=== PATIENT | female | born 1950 | race Caucasian/White ===

== ENCOUNTER 2022-06-21 14:32 | Outpatient (CLI) | payer OTHER, SELFPAY ==
[2022-06-21 15:07] LABS: Hematocrit 41.4 % (33.0-51.0); Hemoglobin* 13.3 gm/dL (12.0-16.0); Mean Corpuscular HGB Conc 32 gm/dL (32-36); Mean Corpuscular Hemoglobin 29 pg (26-34); Mean Corpuscular Volume 89 fL (80-100); Platelet Count* 380 K/uL (140-440); Red Blood Count 4.66 m/uL (4.00-5.20); White Blood Count* 10.09 K/uL (4.50-11.00)
[2022-06-21 15:09] LABS: Slide Review Reflex No
[2022-06-21 15:12] LABS: Hemoglobin A1C* 6.4 % (0-5.6)
[2022-06-21 21:46] LABS: Alanine Aminotransferase* 20 U/L (4-35); Albumin* 4.3 g/dL (3.3-5.0); Alkaline Phosphatase* 59 U/L (40-150); Aspartate Amino Transferase* 31 U/L (12-35); Bilirubin Total* 0.7 mg/dL (0.1-1.5); Blood Urea Nitrogen* 17 mg/dL (7-30); Calcium* 9.8 mg/dL (8.4-10.6); Carbon Dioxide* 26 mmol/L (20-32); Chloride* 102 mmol/L (96-114); Creatinine* 0.6 mg/dL (0.5-1.5); Estimated Glomerular Filt Rate 95 ml/min; Glucose* 104 mg/dL (60-115); Potassium* 4.3 mmol/L (3.6-5.1); Sodium* 138 mmol/L (135-149); Total Protein* 7.6 g/dL (6.0-8.3)
== END 2022-06-21 14:33 | disposition home or self-care (01) ==
LOC: FRMREF 14:36
PROVIDERS: PCP Family Medicine; Visit Provider Family Medicine
DX: I10 Essential (primary) hypertension (principal); M16.11 Unilateral primary osteoarthritis, right hip; E78.1 Pure hyperglyceridemia; Z01.818 Encounter for other preprocedural examination
CPT/HCPCS: 80053; 83036; 85027

== ENCOUNTER 2022-07-02 13:56 | Outpatient (CLI) | payer OTHER, SELFPAY | END 2022-07-02 13:57 | disposition home or self-care (01) | PROVIDERS: PCP Family Medicine; Visit Provider Orthopaedic Surgery Sports Medicine | DX: Z13.9 Encounter for screening, unspecified (principal) | CPT/HCPCS: 36415; 86850; 86900; 86901 ==

== ENCOUNTER 2022-07-04 10:26 | Day surgery (SDC) | payer OTHER, SELFPAY ==
[2022-07-04] VITALS (23 sets, daily range): BP systolic 86–123; BP diastolic 46–73; PULSE 59–73; RESP 12–20; TEMP 35.4–36.7; O2SAT 90–99; BMI 39.3
[2022-07-04] MEDS: ACETAMINOPHEN 500 MG TABLET 1000 MG PO ×2 (10:58→18:36)
[2022-07-04] MEDS: OXYCODONE (CR) 10 MG TAB.ER.12H PO (10:58)
[2022-07-04] MEDS: CELECOXIB 200 MG CAPSULE PO ×2 (10:58→23:46)
[2022-07-04] MEDS: SODIUM CHLORIDE 0.9 % (FLUSH) 10 ML SYRINGE IVF (11:20)
[2022-07-04] MEDS: LACTATED RINGERS 1000 ML 1,000 ML 100 ML IV ×3 (11:20→15:55)
[2022-07-04] MEDS: MIDAZOLAM HCL 1 MG/ML inj IVP (12:53)
[2022-07-04] MEDS: fentaNYL 100 MCG/2 ML inj IVP (12:53)
--- NOTE | 2022-07-04 12:56 | SUR.PREOP ---
TIME?OUT:?1252 PT/RN/MDA?VERIFICATION?OF?SURGICAL?SITE,?PROCEDURE,?AND?CONSENT OBTAINED?PRIOR?TO?INVASIVE?PROCEDURE.
[2022-07-04] MEDS: CEFAZOLIN 2 GM in 0.9 % SODIUM CHLORIDE Mini-bag 100 ML IVPB ×2 (13:26→19:40)
--- NOTE | 2022-07-04 13:40 | CRLHL7_ITS ---
For Patients: As a result of the Cures Act, medical imaging exams and procedure reports are released immediately into your electronic medical record. You may view this report before your referring provider. If you have questions, please contact your health care provider. Indication: POST OP RIGHT ROSELYN Technique: AP hip center pelvis and lateral view right hip Findings/Impression: Hardware from a right total hip arthroplasty is in satisfactory position. Bone alignment is normal. No sign of acute fracture. Postop changes are within normal limits. Dictated by Marco Antonio Robertson MD @ 07/05/2022 9:13:16 AM (Electronically Signed)
--- NOTE | 2022-07-04 13:46 | P.NB_ITS ---
Nerve Block Nerve Block Time Seen by Provider: 12:30 Date Seen: 07/04/22 Type of block requested by surgeon for post-operative analgesia: MARY/LFCN Side: right Time out performed: Yes Verification of patient name: Yes Verification of date of : Yes Site marking: site marked Name of person performing procedure: Eliseo Continuous monitoring Was continuous monitoring of O2 sat, B/P, quality assurance monitor, recorded every 15 minutes?: Yes Procedure Checklist: sterile prep, needles and gloves Ultrasound guided. Images saved: Yes Medications given in 5ml increments after negative aspiration: Ropivicaine %: 0.5 mL: 30 Needle gauge: 20 Decadron (mg): 10 Precedex (mcg): 25 Patient tolerated procedure well: Yes Additional comments: Needle noted adjacent to nerve Block Charges Block Charge (with Pro Fee): Other Periph Nerve Block Use of Ultrasound Machine for Block: Yes- US Guidance/pain block
--- NOTE | 2022-07-04 15:21 | CRLHL7_ITS ---
For Patients: As a result of the Cures Act, medical imaging exams and procedure reports are released immediately into your electronic medical record. You may view this report before your referring provider. If you have questions, please contact your health care provider. Indication: Hip replacement surgery Technique: AP hip fluoroscopic image. Fluoroscopy time 48.2 seconds. Findings/Impression: Hardware from a right total hip arthroplasty is in satisfactory position. Dictated by Marco Antonio Robertson MD @ 07/05/2022 9:12:31 AM (Electronically Signed)
--- NOTE | 2022-07-04 15:27 | P.ORPRC_ITS ---
Procedure Note Date of procedure: 07/04/22 Procedure: PREOPERATIVE DIAGNOSIS: 1. Right hip osteoarthritis, severe, primary POSTOPERATIVE DIAGNOSIS: 1. Right hip osteoarthritis, severe, primary PROCEDURE: 1. Right total hip arthroplasty-anterior approach 2. 74211 - intraoperative fluoroscopy up to 1 hour. SURGEON: Toni Cano MD. LOAN REVIEW MANAGER: Abhay Ochoa PA-C; RENUKA Meza - Of note, a skilled learning and development assistant was critical for this case to aid in patient positioning, tissue retraction, limb manipulation/positioning, and closure. ANESTHESIA: General endotracheal anesthetic EBL: 300 mL IMPLANTS: DePuy J&J uncemented total hip Gunlock cup size 50, hole eliminator, +0 neutral liner Actis stem, standard offset, size 9 +1 mm ceramic 32mm head COMPLICATIONS: None evident INDICATIONS: The patient is a pleasant 72-year-old female who has experienced severe right hip pain and difficulty bearing weight. Workup included x-rays which revealed severe osteoarthrosis in the hip. Given the deformity, the dysfunction, and the pain, as well as the failure of nonoperative management, re commendation was made for surgery. While radiographically she appeared relatively neutral on alignment/leg length, she felt short on the operative side open sees right lower extremity). FINDINGS: Severe osteoarthrosis right hip with extensive chondral wear throughout the femoral head and acetabulum. Perimeter osteophytes. DESCRIPTION OF PROCEDURE: Following a thorough discussion of risks, benefits, and alternatives consent was obtained and the right hip was marked. The patient was brought to the operating room and placed supine on the operating table. Induction of anesthesia was undertaken. 2 g IV Ancef and 1 g tranexamic acid was administered within 1 hr of incision preoperatively. Proper time-out was performed identifying proper patient, site, procedure. The operative extremity was prepped and draped in the appropriate sterile fashion using ChloraPrep after the patient was positioned on the [place] table with head in neutral alignment and all bony prominences well padded. C-arm fluoroscopic imaging was utilized to confirm proper pelvis rotation and position, and to get true AP films of both the contralateral left, and the affected right hip. This is for comparison. A longitudinal incision was made starting approximately 1 cm distal to the ASIS, and 3-4 cm lateral. The incision was extended distally aiming toward the lateral border the patella. Sharp incision through skin and bovie cautery through the subcutaneous tissue allowed identification of the TFL fascia. This was sharply divided, and the fascia bluntly released from the muscle fibers as we dissected medial. Upon coming to the medial border, we were able to retract the TFL laterally, and penetrated the deeper fascia and identify the crossing circumflex vessels. These were ligated/cauterized. The rectus was elevated from the capsule, and retractors placed laterally and medially along the femoral neck to help with visualization of the capsule. We then performed an inverted T capsulotomy. The capsule was tagged for later repair. Retractors were placed inside the capsule. The femoral neck was visualized after releasing medially down to the lesser trochanter, along the saddle laterally, and up onto the acetabulum. The femoral neck cut was made in line with our preoperative templating. The head was removed in a single piece, and sized. We turned our attention to acetabular preparation. Initially, the labrum was resected from around the perimeter, the pulvinar was excised, allowing us to visualize the false wall. We started the reaming with a 43 mm reamer. This was medialized down to the true wall. We then enlarged our reamers sequentially up to one size less than the selected cup size. We trialed at the same size and found it to have an excellent fit. The selected cup was then opened, inserted, and impacted in line with the goal of 40? of abduction, and 20-25? of anteversion. This was confirmed on C-arm fluoroscopic imaging to be in the appropriate/goal position. Once the cup was placed we placed a hole eliminator and a liner consistent with preop planning. Attention was turned to the femoral preparation. The limb was extended, externally rotated, and adducted. The posteromedial capsule was released, as retractors were placed allowing excellent access to the proximal femur. Initially a box bender was followed by canal finder followed by various broaches. We broached sequentially up to the size noted above, found it to have excellent rotational control, and trialing various heads and necks, revealed that appropriate neck offset, and the above noted head size provided the greatest stability, and pentecostal of length, and offset. C-arm fluoroscopic imaging confirmed position of the stem, as well as leg lengths, which were compared with the pre procedure all fluoroscopic images. Trial implants were removed, the real femoral stem inserted, as was the appropriate head. After reducing, the leg was placed through range of motion and stability was confirmed anterior, posterior, and lateral. A 3 min Betadine soak was then performed, and thorough irrigation with normal saline followed. Closure of the capsule was performed with #1 PDS. Bleeding was confirmed to be controlled at this stage, and the TFL fascia was closed with #0 strata fix. Subcutaneous, and subcuticular closure was performed with 2-0 Vicryl and 4-0 Monocryl, respectively. Dressings were applied, and the patient was awoken from anesthesia and transferred the PACU in stable condition. A skilled learning and development assistant was critical for this case to aid in patient positioning, tissue retraction, acetabular and proximal femoral exposure, limb manipulation/positioning, dislocation/relocation, patient safety, and closure. PLAN: 1. Weight bear as tolerated operative extremity. 2. 23 hr perioperative antibiotics. 3. Ice. 4. PT/OT consults for ambulation assistance/mobility education. 5. Social work consult for discharge planning. 6. DVT prophylaxis with at SCDs, [place] Rod, and Xarelto x5 days followed by aspirin for a total of 1 month..
--- NOTE | 2022-07-04 16:39 | W.ANESCHARGE ---
Anesthesia Charges Start Date/Time Anesthesia Start Date: 07/04/22 Anesthesia Start Time: 13:18 Stop Date/Time Anesthesia Stop Date: 07/04/22 Anesthesia Stop Time: 16:32 Summary Emergency: No Extremes of Age: Over 70-CPT [id number]
--- NOTE | 2022-07-04 17:13 | SUR.PHASEI ---
patient met discharge criteria per anesthesia
[2022-07-04] MEDS: HYDROmorphone 0.5 mg/0.5 ml inj IVP (17:32)
[2022-07-04] MEDS: ONDANSETRON 2 MG/ML inj 4 MG IVP (17:32)
[2022-07-04] MEDS: 0.9 % SODIUM CHLORIDE 500 ML IV (18:11)
--- NOTE | 2022-07-04 18:13 | P.IMCN_ITS ---
Date of Consult Consult date: 07/04/22 Requesting Physician: Orthopedics Primary Care Provider: April Colón, Consult Narrative Reason for consult: Medical Mangement following Right Total Hip Arthoplasty Narrative: Marissa Quijano is a 72 year old female who underwent a successful right total hip arthroplasty earlier today. She is mildly hypotensive currently and is receiving a saline bolus. Pt has no other complaints and otherwise feels well. There are no reports of any difficulty during her procedure or recovery to this point. Review of Systems Status of ROS: Reports: 10 or more systems reviewed and unremarkable except as noted in History and below [facility] Medical History (Updated 07/04/22 @ 18:25 by Johnathan Cassidy MD) Heart murmur Hemoglobin A1c above reference range Hip pain, right Hyperlipidemia Hypertension Spinal stenosis Surgical History (Updated 07/04/22 @ 18:19 by Johnathan Cassidy MD) History of appendectomy (~1966) History of cataract removal with insertion of prosthetic lens History of hysterectomy (~1966) History of partial surgical removal of colon History of right hip replacement History of total left hip replacement (08/28/18) Family History Father High blood pressure S/P triple vessel bypass Paget's disease Mother High blood pressure CHF (congestive heart failure) Dementia Brother Diabetes Cancer of kidney Stroke Heart attack Other Heart disease Social History Narrative: Non-smoker Highest level of school completed/degree received: high school graduate Smoking Status: Former smoker What tobacco products do you use: cigarettes Smoking quit date/years: >15 years ago Do you use any of these nicotine containing products: None Second hand tobacco smoke exposure: No How often do you have a drink containing alcohol: monthly or less Alcohol type: wine How many standard drinks containing alcohol do you have on a typical day: 1 or 2 How often do you have six or more drinks on one occasion: Never AUDIT-C Alcohol total score: 1 Non-prescribed substance use: marijuana (any form) Non-prescribed substance use details: medical marijuana but not in past month Caffeine: Yes (decaf coffee 1-2 cups per day/ 1 glass iced tea per day) Are you using contraception or practicing any form of control: No service: No Meds Home Medications and Allergies Home Medications Medication Instructions Recorded Confirmed Type acetaminophen 650 mg 650 mg PO TID PRN 05/01/22 07/04/22 History tablet,extended release cholecalciferol (vitamin D3) 25 25 mcg PO DAILY 05/01/22 07/04/22 History mcg (1,000 unit) capsule coenzyme Q10 100 mg capsule 100 mg PO DAILY 05/01/22 07/04/22 History krill oil 500 mg capsule 1 cap PO DAILY 05/01/22 07/04/22 History lisinopril 10 mg tablet 10 mg PO DAILY 05/01/22 07/04/22 History multivitamin 1 tab PO DAILY 05/01/22 07/04/22 History zinc 50 mg tablet 50 mg PO DAILY 05/01/22 07/04/22 History atorvastatin 10 mg tablet 10 mg PO HS 07/03/22 07/04/22 History Allergies Allergy/AdvReac Type Severity Reaction Status Date / Time No Known Allergies Allergy Verified 07/04/22 10:47 Exam Narrative: Exam Narrative: EXAM GENERAL: Patient appears comfortable and well. EYES: No scleral icterus. THYROID: no thyroid nodules or thyromegaly. LYMPH: No supraclavicular or cervical lymphadenopathy. SKIN: Visible skin seen during exam normal or with benign process only. EXT: No dependent lower extremity pedal edema. Right hip is sterilely dressed. HEART: 2 or 6 systolic murmur which patient states is chronic. LUNGS: Clear to auscultation bilaterally with no crackles or wheezes. ABD: Soft, non tender, non distended. PSYCH: Good eye contact, speech is not pressured. Const: Vital Signs, click to edit/add: Vital Signs - 24 hr 07/04/22 10:51 07/04/22 12:53 07/04/22 13:05 Temperature 98.1 F Pulse Rate 71 67 69 Pulse Rate [Left P ulse Oximeter] Respiratory Rate 16 16 16 Blood Pressure 123/73 115/59 L 102/51 L Blood Pressure [Ri ght Arm] Pulse Oximetry 94 99 98 Oxygen Delivery Me thod Room Air Nasal Cannula Nasal Cannula Oxygen Flow Rate 2 2 07/04/22 13:01 07/04/22 16:28 07/04/22 16:35 Temperature 96.8 F L 96.8 F L Pulse Rate 62 63 63 Pulse Rate [Left P ulse Oximeter] Respiratory Rate 16 15 15 Blood Pressure 107/52 L 104/51 L 104/51 L Blood Pressure [Ri ght Arm] Pulse Oximetry 98 95 95 Oxygen Delivery Me thod Nasal Cannula Nasal Cannula Room Air Oxygen Flow Rate 2 4 0 07/04/22 16:40 07/04/22 16:45 07/04/22 16:50 Temperature 96.8 F L 96.8 F L 96.8 F L Pulse Rate 64 68 64 Pulse Rate [Left P ulse Oximeter] Respiratory Rate 12 19 17 Blood Pressure 102/53 L 109/53 L 111/64 Blood Pressure [Ri ght Arm] Pulse Oximetry 98 98 90 Oxygen Delivery Me thod Room Air Room Air Room Air Oxygen Flow Rate 0 0 0 07/04/22 16:55 07/04/22 17:00 07/04/22 17:05 Temperature 96.6 F L 96.6 F L 95.7 F L Pulse Rate 66 66 63 Pulse Rate [Left P ulse Oximeter] Respiratory Rate 15 15 14 Blood Pressure 99/57 L 99/57 L Blood Pressure [Ri ght Arm] 101/57 L Pulse Oximetry 93 93 Oxygen Delivery Me thod Room Air Room Air Room Air Oxygen Flow Rate 0 0 0 07/04/22 17:15 Temperature 95.7 F L Pulse Rate Pulse Rate [Left P ulse Oximeter] 64 Respiratory Rate 16 Blood Pressure Blood Pressure [Ri ght Arm] 91/60 Pulse Oximetry 94 Oxygen Delivery Me thod Nasal Cannula Oxygen Flow Rate 1 Assessment and Plan Assessment and plan (1) History of right hip replacement: Status: Acute Assessment and Plan: Pt receiving saline bolus. Will monitor closely as evening progresses. Anti- hypertensive on hold. Preoperative Hgb 13.3. Will plan to follow standard post operative course with PT and OT assessment. (2) Hypertension: Status: Chronic Assessment and Plan: Holding Lisinopril (3) Hyperlipidemia: Status: Chronic Assessment and Plan: Continue Atorvastatin (4) Heart murmur: Status: Chronic Assessment and Plan: Pt is aware of this. She is not in heart failure. Pt does have an Echo from 2017 showing LVH with EF of 55-60% with a mildly dilated Left Atrium. Would recommend outpt follow up. (5) Hemoglobin A1c above reference range: Status: Chronic Assessment and Plan: Glucose is 104. Will need outpt follow up. Plan Pt would like to be a full code.
--- NOTE | 2022-07-04 19:31 | PC.NURSE ---
Pt up to m/s floor at 1705, requested to sit up right away in bed, BP's soft - see frequents. Dr. Cassidy notified. NS bolus initiated and pt layed flat. pain upon arrival 04/22 - dilaudid given for this. mild nausea - zofran. Dtr in room and supportive. ice pack to right hip and surgical [place]ist[place] CDI. LS CTA.
[2022-07-04] MEDS: SENNOSIDES 1 TAB TABLET 2 TAB PO (23:46)
[2022-07-04] MEDS: ATORVASTATIN 10 MG TABLET PO (23:46)
[2022-07-05] MEDS: OXYCODONE 5 MG TABLET PO ×5 (02:27→13:40)
[2022-07-05 03:00] VITALS: BP 114/55; PULSE 64; RESP 16; TEMP 36.6; O2SAT 95
[2022-07-05] MEDS: CEFAZOLIN 2 GM in 0.9 % SODIUM CHLORIDE Mini-bag 100 ML IVPB ×2 (03:31→11:22)
--- NOTE | 2022-07-05 05:15 | PC.NURSE ---
[id number]: patient up with assist X1 to BR with walker and gait belt, pain well managed, incision c/d/i with Mepilex dressing, active ice to site entire shift. tolerating diet. IS to 1999
[2022-07-05] MEDS: ACETAMINOPHEN 500 MG TABLET 1000 MG PO ×2 (06:34→12:22)
[2022-07-05 06:56] LABS: Basophils Percent Auto 0.1 % (0.0-3.0); Hematocrit 33.3 % (33.0-51.0); Hemoglobin* 10.9 gm/dL (12.0-16.0); Immature Granulocytes Abs Auto 0.02 K/uL (0.00-0.30); Lymphocytes Percent Auto 6.3 % (20-44); Mean Corpuscular HGB Conc 33 gm/dL (32-36); Mean Corpuscular Hemoglobin 29 pg (26-34); Mean Corpuscular Volume 88 fL (80-100); Monocytes Percent Auto 7.6 % (0.0-11.0); Neutrophils Percent Auto 85.9 % (42.0-72.0); Platelet Count* 328 K/uL (140-440); RDW Coefficient of Variation % 13.2 % (11.5-15.5); Red Blood Count 3.79 m/uL (4.00-5.20); White Blood Count* 14.55 K/uL (4.50-11.00)
[2022-07-05 06:58] LABS: Slide Review Reflex No
[2022-07-05 07:00] VITALS: BP 109/60; PULSE 95; RESP 16; TEMP 36.8; O2SAT 95
[2022-07-05 07:05] LABS: Sodium* 134 mmol/L (135-149)
[2022-07-05 07:08] LABS: Blood Urea Nitrogen* 14 mg/dL (7-30); Creatinine* 0.6 mg/dL (0.5-1.5); Estimated Glomerular Filt Rate 95 ml/min
[2022-07-05] MEDS: CELECOXIB 200 MG CAPSULE PO (08:35)
--- NOTE | 2022-07-05 09:54 | PM.DS1 ---
DS: Providers Provider Time Seen by Provider: 07:40 Date Seen: 07/05/22 Primary care physician: April Colón DO Consults: 07/04/22 17:07 Consult to Occupational Therapy [CONS] Routine Comment: Reason(s) for OT Consult:: ADLs Prior to Discharge Any Restrictions?:: No Restrictions Comment: Consult to Physical Therapy [CONS] Routine Comment: Ambulate in the rahman today Reason(s) for PT Consult:: Evaluate and Treat Any Restrictions?:: No Restrictions Comment: Nursing Activity Consult to Physician [CONS] Routine Comment: Consulting Provider: Hospitalists Has provider been notified: No Consult to Anthropological Linguist [CONS] Routine Comment: Reason for Consult:: Discharge Planning Needs Attending Physician on discharge: Toni Cano MD Date of Discharge: 07/05/22 DS: Diagnosis Discharge Diagnosis (1) Heart murmur: Status: Chronic (2) History of right hip replacement: Status: Acute Problem details: POD 1 right total hip arthroplasty - anterior approach (3) Osteoarthritis of right hip: Status: Acute Problem details: Right hip osteoarthrosis, severe - [id number] status post RTHA-anterior approach (4) Elevated hemoglobin A1c: Status: Acute (5) Hyperlipidemia: Status: Chronic (6) Hypertension: Status: Chronic (7) Hypertriglyceridemia: Status: Acute (8) Low back pain: Status: Acute (9) Osteoporosis: Status: Acute (10) Postoperative anemia due to acute blood loss: Status: Acute Problem details: Preop hemoglobin 13, postop hemoglobin 10.9; repeat 6 hours later 11.0 DS: Summary Hospital Course Hospital Course: 72-year-old female who underwent a successful elective right total hip arthroplasty. Postoperatively she was noted to be mildly hypotensive and received a saline bolus. Her blood pressures continued to be low normal overnight. Preop hemoglobin was 13 and postop hemoglobin is 10.9. Xarelto was due to be started on postop day 1. In the morning for VTE prophylaxis after hip arthroplasty, but this was held until later in the day to determine if hemoglobin remains stable and blood pressures improved. Also her usual antihypertensives were held on the 1st postop day. She is noted have a heart murmur which is known, last echocardiogram was in 2017. Recommend repeat outpatient echocardiogram. The patient has a history of right hip osteoarthritis, primary, severe. After appropriate preoperative evaluation, the patient underwent right total hip arthroplasty. Postoperatively given anticoagulation for deep vein thrombosis prophylaxis, which was held until confirmed stabilization of her hemoglobin which dropped from 13.3 preop to 10.9 postop. Repeat hemoglobin 6 hours later showed to be stable at 11; thus patient was discharged with Xarelto. Once completion of Xarelto, she will transition to aspirin b.i.d. They progressed to PT/OT and were felt ready and prepared for discharged to home with appropriate pain medication and anticoagulation medications. Time Spent with Patient Time attestation: Total time spent providing and/or coordinating discharge services: Exam Narrative: Exam Narrative: General: No acute distress. Awake, alert, oriented x3. No pallor. No jaundice. Right eye tic noted. Cardiovascular: Regular rate and rhythm. No murmurs, gallops, or rubs. Respiratory: Clear to auscultation bilaterally. No wheezes or crackles. Abdomen: Bowel sounds present. Soft, nondistended, nontender. Extremities: Right anterior hip bandage clean, dry, and intact. The area of wound and surrounding is soft to palpation without much tenderness. No pedal edema. Const: Vital Signs, click to edit/add: Vital Signs - 24 hr 07/04/22 10:51 07/04/22 12:53 07/04/22 13:05 Temperature 98.1 F Pulse Rate 71 67 69 Pulse Rate [Left P ulse Oximeter] Respiratory Rate 16 16 16 Blood Pressure 123/73 115/59 L 102/51 L Blood Pressure [Ri ght Arm] Pulse Oximetry 94 99 98 Oxygen Delivery Me thod Room Air Nasal Cannula Nasal Cannula Oxygen Flow Rate 2 2 07/04/22 13:01 07/04/22 16:28 07/04/22 16:35 Temperature 96.8 F L 96.8 F L Pulse Rate 62 63 63 Pulse Rate [Left P ulse Oximeter] Respiratory Rate 16 15 15 Blood Pressure 107/52 L 104/51 L 104/51 L Blood Pressure [Ri ght Arm] Pulse Oximetry 98 95 95 Oxygen Delivery Me thod Nasal Cannula Nasal Cannula Room Air Oxygen Flow Rate 2 4 0 07/04/22 16:40 07/04/22 16:45 07/04/22 16:50 Temperature 96.8 F L 96.8 F L 96.8 F L Pulse Rate 64 68 64 Pulse Rate [Left P ulse Oximeter] Respiratory Rate 12 19 17 Blood Pressure 102/53 L 109/53 L 111/64 Blood Pressure [Ri ght Arm] Pulse Oximetry 98 98 90 Oxygen Delivery Me thod Room Air Room Air Room Air Oxygen Flow Rate 0 0 0 07/04/22 16:55 07/04/22 17:00 07/04/22 17:05 Temperature 96.6 F L 96.6 F L 95.7 F L Pulse Rate 66 66 63 Pulse Rate [Left P ulse Oximeter] Respiratory Rate 15 15 14 Blood Pressure 99/57 L 99/57 L Blood Pressure [Ri ght Arm] 101/57 L Pulse Oximetry 93 93 Oxygen Delivery Me thod Room Air Room Air Room Air Oxygen Flow Rate 0 0 0 07/04/22 17:15 07/04/22 17:30 07/04/22 17:45 Temperature 95.7 F L 97.1 F L 97.1 F L Pulse Rate Pulse Rate [Left P ulse Oximeter] 64 59 L 60 Respiratory Rate 16 16 14 Blood Pressure Blood Pressure [Ri ght Arm] 91/60 103/50 L 91/46 L Pulse Oximetry 94 95 95 Oxygen Delivery Me thod Nasal Cannula Nasal Cannula Nasal Cannula Oxygen Flow Rate 1 1 1 07/04/22 18:27 07/04/22 18:00 07/04/22 18:10 Temperature 97.2 F L 97.1 F L 97.1 F L Pulse Rate Pulse Rate [Left P ulse Oximeter] 65 63 68 Respiratory Rate 16 16 16 Blood Pressure Blood Pressure [Ri ght Arm] 99/52 L 86/47 L 94/48 L Pulse Oximetry 95 96 95 Oxygen Delivery Me thod Nasal Cannula Nasal Cannula Nasal Cannula Oxygen Flow Rate 1 2 1 07/04/22 19:00 07/04/22 20:00 07/04/22 21:00 Temperature 97.6 F 97.6 F 98 F Pulse Rate Pulse Rate [Left P ulse Oximeter] 66 69 73 Respiratory Rate 16 18 20 Blood Pressure Blood Pressure [Ri ght Arm] 102/61 109/60 120/53 L Pulse Oximetry 98 93 Oxygen Delivery Me thod Nasal Cannula Room Air Room Air Oxygen Flow Rate 1 07/04/22 22:00 07/04/22 22:00 07/04/22 23:00 Temperature 98 F 98 F Pulse Rate Pulse Rate [Left P ulse Oximeter] 68 67 Respiratory Rate 20 16 Blood Pressure Blood Pressure [Ri ght Arm] 110/62 92/54 L Pulse Oximetry 93 93 95 Oxygen Delivery Me thod Nasal Cannula Nasal Cannula Nasal Cannula Oxygen Flow Rate 1 1 1 07/04/22 23:00 07/05/22 03:00 07/05/22 07:00 Temperature 98 F 98 F 98.3 F Pulse Rate Pulse Rate [Left P ulse Oximeter] 67 64 95 Respiratory Rate 16 16 16 Blood Pressure Blood Pressure [Ri ght Arm] 93/51 L 114/55 L 109/60 Pulse Oximetry 95 95 95 Oxygen Delivery Me thod Nasal Cannula Nasal Cannula Nasal Cannula Oxygen Flow Rate 1 0 0 DS: Data Data Completed and Pending Completed studies during hospitalization: Ordering Physician: Toni Cano M.D. Date of Service: 07/04/22 Procedure(s): XR hip RT post op Accession Number(s): [id number] cc: Toni Cano M.D.; April Colón D.O.~ For Patients: As a result of the Cures Act, medical imaging exams and procedure reports are released immediately into your electronic medical record. You may view this report before your referring provider. If you have questions, please contact your health care provider. Indication: POST OP RIGHT ROSELYN Technique: AP hip center pelvis and lateral view right hip Findings/Impression: Hardware from a right total hip arthroplasty is in satisfactory position. Bone alignment is normal. No sign of acute fracture. Postop changes are within normal limits. Dictated by Marco Antonio Robertson MD @ 07/05/2022 9:13:16 AM (Electronically Signed) Ordering Physician: Toni Cano M.D. Date of Service: 07/04/22 Procedure(s): XR hip RT 1V Accession Number(s): [id number] cc: Toni Cano M.D.; April Colón D.O.~ For Patients: As a result of the Century Cures Act, medical imaging exams and procedure reports are released immediately into your electronic medical record. You may view this report before your referring provider. If you have questions, please contact your health care provider. Indication: Hip replacement surgery Technique: AP hip fluoroscopic image. Fluoroscopy time 48.2 seconds. Findings/Impression: Hardware from a right total hip arthroplasty is in satisfactory position. Dictated by Marco Antonio Robertson MD @ 07/05/2022 9:12:31 AM (Electronically Signed) Labs on day of discharge: Labs from last 24 hours 07/05/22 07/05/22 06:18 06:18 WBC 14.55 H RBC 3.79 L Hgb 10.9 L Hct 33.3 MCV 88 MCH 29 MCHC 33 RDW Coeff of Omaira 13.2 Plt Count 328 Neut % (Auto) 85.9 H Lymph % (Auto) 6.3 L Holmes % (Auto) 7.6 Eos % (Auto) 0.0 Baso % (Auto) 0.1 Neut # (Auto) 12.50 H Lymph # (Auto) 0.90 Holmes # (Auto) 1.10 H Eos # (Auto) 0.00 Baso # (Auto) 0.00 Abs Immat Gran (auto) 0.02 Sodium 134 L Potassium 4.0 BUN 14 Creatinine 0.6 Estimated Creat Clear 70.90 Estimated GFR 95 Discharge Plan Discharge Disposition: Home, Self-Care Discharging Surgeon: Toni Cano Follow-Up Appointment: 1 week PO with SILVINO Prescriptions: New sennosides-docusate sodium [Senna-S] 8.6-50 mg tablet 1 - 4 tab-cap PO BID PRN (Reason: constipation) Qty: 60 0RF Rx Instructions: Hold medication if experiencing loose stools. aspirin 81 mg tablet,delayed release (DR/EC) 81 mg PO BID Qty: 50 0RF Rx Instructions: Medication to help prevent blood clots postoperatively; take TWICE daily. oxycodone 5 mg tablet 2.5 - 5 mg PO Q4-6H MDD 6 PRN (Reason: pain) Qty: 42 0RF Rx Instructions: Take as needed for postop pain: 2.5mg mild pain, 5mg moderate-severe pain; wean as tolerated. rivaroxaban 10 mg tablet 10 mg PO DAILY Qty: 4 0RF Rx Instructions: Medication for deep vein clot prevention post surgery. Complete this medication before starting Aspirin. Continued coenzyme Q10 100 mg capsule 100 mg PO DAILY acetaminophen 650 mg tablet extended release 650 mg PO TID PRN multivitamin Tablet 1 tab PO DAILY cholecalciferol (vitamin D3) 25 mcg (1,000 unit) capsule 25 mcg PO DAILY zinc 50 mg tablet 50 mg PO DAILY atorvastatin 10 mg tablet 10 mg PO HS Held krill oil 500 mg capsule 1 cap PO DAILY Hold Instructions: Resume on 07/09/22. lisinopril 10 mg tablet 10 mg PO DAILY Hold Instructions: Resume on 07/09/22. hydrochlorothiazide 25 mg tablet 25 mg PO DAILY Qty: 90 3RF Hold Instructions: Resume on 07/09/22. Activity Level: Activity as Tolerated, Weight Bearing as Tolerated, Use Cane and Use Walker Activity Detail: Wound: ?Do not remove original dressing; we will remove this at first postop visit in 1 week. Only remove dressing if integrity is in question. ?No immersing wound in water; showering okay; light scrub with your hand and body soap, rinse, dab dry ?Sutures are under the skin, will dissolve; allow surgical glue to come off naturally; do not scrub the wound or apply ointments/lotions ?Call our office with any redness that streaks, excessive drainage from the wound, or wound gapping. Ice/Elevate: ?Ice as needed for swelling and discomfort (cryocuff or ice pack); elevate frequently above the heart JAYASHREE socks: ?Wear for 1 month, remove for 1 hour 3 times per day ?These are frustrating to take on/off, but are important for blood clot prevention for 1 month after surgery Blood Clot Prevention (DVT): ?Medication: Rivaroxaban, and transition to 81 mg aspirin by mouth twice daily (total one month of protection). Driving: ?Do not drive while taking narcotic pain medication ?Anticipate 4-6 weeks no driving if operative leg is driving leg Dental: ?No elective dental work for 6 months post-op. If there is an urgent/emergent dental need, contact our office for an antibiotic prescription. Smoking/Alcohol: ?Do not smoke; do no drink alcohol especially when taking postoperative oral narcotic medication Seek Care from you Primary Care Provider if you experience the following issues in the postoperative phase and beyond: ?Bacterial infections such as: pneumonia, bacterial skin infection (cellulitis), UTI, high fever, chills unrelated to the operative body part - call your primary care physician urgently for treatment in hopes to protect your health and the metal implant. Referrals: ?PT, OT per patient preference - evaluate treat total hip arthroplasty protocol (gait training, ROM, ADLs) Follow up: ?Ortho surgeon follow-up in 6 weeks; repeat radiographs AP pelvis, cross-table lateral operative hip ?PA-C visit in 1 week *If there are any acute concerns regarding your surgery, please call our orthopedic clinic ([phone]) Discharge Diet: Regular Patient Instructions: Aspirin (By mouth), Oxycodone, Rapid Release (By mouth), Rivaroxaban (By mouth), Senna (By mouth) (Sen, Senna-lax), Total Hip Replacement (DC) Forms: Work/Release Restrictions Follow-up: Abhay Ochoa PA-C [Physician Storage Facility Rental Clerk] - 07/10/22 9:00 am April Colón DO [Primary Care Provider] - 07/10/22 1:45 pm (Saturday or Saturday for BP check and to determine when to restart antihypertensives.) Discharge Orders: Discharge Order (Routine); Ordered 07/05/22 Ordered By: Bartolo Diaz
[2022-07-05 11:00] VITALS: BP 109/60; PULSE 83; RESP 18; TEMP 36.7; O2SAT 98
--- NOTE | 2022-07-05 11:08 | W.ANESCHARGE ---
Anesthesia Charges Start Date/Time Anesthesia Start Date: 07/04/22 Anesthesia Start Time: 13:18 Stop Date/Time Anesthesia Stop Date: 07/04/22 Anesthesia Stop Time: 16:32 Summary Emergency: No Extremes of Age: Over 70-CPT 32418
--- NOTE | 2022-07-05 11:53 | PM.ORPN ---
Subjective Subjective Date Seen: 07/05/22 Principal diagnosis: Status postop day 1 right total hip arthroplasty - anterior approach Interval history: Patient reports doing well. She reports no acute events over night aside from some lightheadedness which has since resolved. Staff noted soft blood pressures without tachycardia treated with bolus fluid. She feels this was related to her not having any food. She feels good this morning, eating breakfast upon her visit. Pain managed with scheduled /PRN medications and ice. DVT prophylaxis rivaroxaban, bilateral knee high Bolivar stockings, and SCDs. Denies fevers, chills, aches, N/V, CP, SOB/[place], tachycardia. Ortho Exam Narrative Exam Narrative: General: Well-developed, well-nourished, A&Ox 3, no apparent acute distress. Pulmonary: Breathing pattern regular, even, without apparent distress or audible wheeze present. -Patient appears comfortable in recliner eating breakfast; no apparent acute distress -Alert and oriented times 3 -Operative hip mildly swollen; soft tissues supple no evidence of hematoma; no obvious erythema. Ecchymosis minimal. Warmth appropriate -Surgical dressing clean, dry, intact; no obvious drainage, no erythematous streaking peripheral to the bandage -Bilateral calves soft and supple; no significant swelling, edema, tenderness, erythema, discoloration, warmth, or palpable cords -2+ DP/PT pulses, intact dermatomes and myotomes distally (5/5 strength). No numbness about the lateral femoral cutaneous nerve distribution. Const Vital Signs, click to edit/add: Vital Signs - 24 hr 07/04/22 12:53 07/04/22 13:05 07/04/22 13:01 Temperature Pulse Rate 67 69 62 Pulse Rate [Left Pulse Oximeter] Respiratory Rate 16 16 16 Blood Pressure 115/59 L 102/51 L 107/52 L Blood Pressure [Right Arm] Pulse Oximetry 99 98 98 Oxygen Delivery Method Nasal Cannula Nasal Cannula Nasal Cannula Oxygen Flow Rate 2 2 2 07/04/22 16:28 07/04/22 16:35 07/04/22 16:40 Temperature 96.8 F L 96.8 F L 96.8 F L Pulse Rate 63 63 64 Pulse Rate [Left Pulse Oximeter] Respiratory Rate 15 15 12 Blood Pressure 104/51 L 104/51 L 102/53 L Blood Pressure [Right Arm] Pulse Oximetry 95 95 98 Oxygen Delivery Method Nasal Cannula Room Air Room Air Oxygen Flow Rate 4 0 0 07/04/22 16:45 07/04/22 16:50 07/04/22 16:55 Temperature 96.8 F L 96.8 F L 96.6 F L Pulse Rate 68 64 66 Pulse Rate [Left Pulse Oximeter] Respiratory Rate 19 17 15 Blood Pressure 109/53 L 111/64 99/57 L Blood Pressure [Right Arm] Pulse Oximetry 98 90 93 Oxygen Delivery Method Room Air Room Air Room Air Oxygen Flow Rate 0 0 0 07/04/22 17:00 07/04/22 17:05 07/04/22 17:15 Temperature 96.6 F L 95.7 F L 95.7 F L Pulse Rate 66 63 Pulse Rate [Left Pulse Oximeter] 64 Respiratory Rate 15 14 16 Blood Pressure 99/57 L Blood Pressure [Right Arm] 101/57 L 91/60 Pulse Oximetry 93 94 Oxygen Delivery Method Room Air Room Air Nasal Cannula Oxygen Flow Rate 0 0 1 07/04/22 17:30 07/04/22 17:45 07/04/22 18:27 Temperature 97.1 F L 97.1 F L 97.2 F L Pulse Rate Pulse Rate [Left Pulse Oximeter] 59 L 60 65 Respiratory Rate 16 14 16 Blood Pressure Blood Pressure [Right Arm] 103/50 L 91/46 L 99/52 L Pulse Oximetry 95 95 95 Oxygen Delivery Method Nasal Cannula Nasal Cannula Nasal Cannula Oxygen Flow Rate 1 1 1 07/04/22 18:00 07/04/22 18:10 07/04/22 19:00 Temperature 97.1 F L 97.1 F L 97.6 F Pulse Rate Pulse Rate [Left Pulse Oximeter] 63 68 66 Respiratory Rate 16 16 16 Blood Pressure Blood Pressure [Right Arm] 86/47 L 94/48 L 102/61 Pulse Oximetry 96 95 98 Oxygen Delivery Method Nasal Cannula Nasal Cannula Nasal Cannula Oxygen Flow Rate 2 1 1 07/04/22 20:00 07/04/22 21:00 07/04/22 22:00 Temperature 97.6 F 98 F Pulse Rate Pulse Rate [Left Pulse Oximeter] 69 73 Respiratory Rate 18 20 Blood Pressure Blood Pressure [Right Arm] 109/60 120/53 L Pulse Oximetry 93 93 Oxygen Delivery Method Room Air Room Air Nasal Cannula Oxygen Flow Rate 1 07/04/22 22:00 07/04/22 23:00 07/04/22 23:00 Temperature 98 F 98 F 98 F Pulse Rate Pulse Rate [Left Pulse Oximeter] 68 67 67 Respiratory Rate 20 16 16 Blood Pressure Blood Pressure [Right Arm] 110/62 92/54 L 93/51 L Pulse Oximetry 93 95 95 Oxygen Delivery Method Nasal Cannula Nasal Cannula Nasal Cannula Oxygen Flow Rate 1 1 1 07/05/22 03:00 07/05/22 07:00 07/05/22 11:00 Temperature 98 F 98.3 F 98.1 F Pulse Rate Pulse Rate [Left Pulse Oximeter] 64 95 83 Respiratory Rate 16 16 18 Blood Pressure Blood Pressure [Right Arm] 114/55 L 109/60 109/60 Pulse Oximetry 95 95 98 Oxygen Delivery Method Nasal Cannula Nasal Cannula Room Air Oxygen Flow Rate 0 0 Assessment and Plan Assessment and plan (1) History of right hip replacement: Problem details: POD 1 right total hip arthroplasty - anterior approach Status: Acute (2) Heart murmur: Status: Chronic (3) Osteoarthritis of right hip: Problem details: Right hip osteoarthrosis, severe - [id number] Status: Acute (4) Elevated hemoglobin A1c: Status: Acute (5) Hyperlipidemia: Status: Chronic (6) Hypertension: Status: Chronic (7) Hypertriglyceridemia: Status: Acute (8) Low back pain: Status: Acute (9) Osteoporosis: Status: Acute (10) Postoperative anemia due to acute blood loss: Problem details: Preop hemoglobin 13, postop hemoglobin 10.9. Status: Acute Plan - Complete 23 hour perioperative antibiotics. - PT/OT consult for education and assistance. - Social work consult for discharge planning - patient also wants to talk about possible home care nurse. Likely she would not qualify for this; an order was placed for weekly community centrifuge separator tender visits to check on patient - Prescribed analgesics as needed - DVT prophylaxis: Rivaroxaban, bilateral knee high Bolivar Hose stockings and SCDs. We will hold her 0900 hours rivaroxaban until a repeat hemoglobin. I foresee her discharging today though on rivaroxaban even of this hemoglobin is still low; there are no obvious signs of significant continued bleeding within the hip joint and surrounding soft tissues - Anticipation is for discharge to home with family 07/05/2022 if the patient remains medically stable (hemoglobin acceptable and asymptomatic), pain is controlled, and they are safe with mobilization.
--- NOTE | 2022-07-05 13:42 | P.DS_ITS ---
DS: Providers Provider Date Seen: 07/05/22 Date of admission: med/surg recovery 07/04/22 Primary care physician: April Colón DO Consults: 07/04/22 17:07 Consult to Occupational Therapy [CONS] Routine Comment: Reason(s) for OT Consult:: ADLs Prior to Discharge Any Restrictions?:: No Restrictions Comment: Consult to Physical Therapy [CONS] Routine Comment: Ambulate in the rahman today Reason(s) for PT Consult:: Evaluate and Treat Any Restrictions?:: No Restrictions Comment: Nursing Activity Consult to Physician [CONS] Routine Comment: Consulting Provider: Hospitalists Has provider been notified: No Consult to Rolled Seat Trimmer [CONS] Routine Comment: Reason for Consult:: Discharge Planning Needs Attending Physician on discharge: Toni Cano MD Date of Discharge: 07/05/22 DS: Diagnosis Discharge Diagnosis (1) Osteoarthritis of right hip: Status: Acute Problem details: Right hip osteoarthrosis, severe - [id number] status post RTHA-anterior approach (2) Postoperative anemia due to acute blood loss: Status: Acute Problem details: Preop hemoglobin 13, postop hemoglobin 10.9; repeat 6 hours later 11.0 DS: Summary Hospital Course Hospital Course: 72-year-old female who underwent a successful elective right total hip arthroplasty. Postoperatively she was noted to be mildly hypotensive and received a saline bolus. Her blood pressures continued to be low normal overnight. Preop hemoglobin was 13 and postop hemoglobin is 10.9. Xarelto was due to be started on postop day 1. In the morning for VTE prophylaxis after hip arthroplasty, but this was held until later in the day to determine if hemoglobin remains stable and blood pressures improved. Also her usual antihypertensives were held on the 1st postop day. She is noted have a heart murmur which is known, last echocardiogram was in 2017. Recommend repeat outpatient echocardiogram. The patient has a history of right hip osteoarthritis, primary, severe. After appropriate preoperative evaluation, the patient underwent right total hip arthroplasty. Postoperatively given anticoagulation for deep vein thrombosis prophylaxis, which was held until confirmed stabilization of her hemoglobin which dropped from 13.3 preop to 10.9 postop. Repeat hemoglobin 6 hours later showed to be stable at 11; thus patient was discharged with Xarelto. Once completion of Xarelto, she will transition to aspirin b.i.d. They progressed to PT/OT and were felt ready and prepared for discharged to home with appropriate pain medication and anticoagulation medications. Status at Discharge Functional status at discharge: uses cane/walker Overall status at discharge: patient is progressing back to baseline Time Spent with Patient Time attestation: Total time spent providing and/or coordinating discharge services: Time spent: Greater than 30 minutes Exam Const: Vital Signs, click to edit/add: Vital Signs - 24 hr 07/04/22 16:28 07/04/22 16:35 07/04/22 16:40 Temperature 96.8 F L 96.8 F L 96.8 F L Pulse Rate 63 63 64 Pulse Rate [Left P ulse Oximeter] Respiratory Rate 15 15 12 Blood Pressure 104/51 L 104/51 L 102/53 L Blood Pressure [Ri ght Arm] Pulse Oximetry 95 95 98 Oxygen Delivery Me thod Nasal Cannula Room Air Room Air Oxygen Flow Rate 4 0 0 07/04/22 16:45 07/04/22 16:50 07/04/22 16:55 Temperature 96.8 F L 96.8 F L 96.6 F L Pulse Rate 68 64 66 Pulse Rate [Left P ulse Oximeter] Respiratory Rate 19 17 15 Blood Pressure 109/53 L 111/64 99/57 L Blood Pressure [Ri ght Arm] Pulse Oximetry 98 90 93 Oxygen Delivery Me thod Room Air Room Air Room Air Oxygen Flow Rate 0 0 0 07/04/22 17:00 07/04/22 17:05 07/04/22 17:15 Temperature 96.6 F L 95.7 F L 95.7 F L Pulse Rate 66 63 Pulse Rate [Left P ulse Oximeter] 64 Respiratory Rate 15 14 16 Blood Pressure 99/57 L Blood Pressure [Ri ght Arm] 101/57 L 91/60 Pulse Oximetry 93 94 Oxygen Delivery Me thod Room Air Room Air Nasal Cannula Oxygen Flow Rate 0 0 1 07/04/22 17:30 07/04/22 17:45 07/04/22 18:27 Temperature 97.1 F L 97.1 F L 97.2 F L Pulse Rate Pulse Rate [Left P ulse Oximeter] 59 L 60 65 Respiratory Rate 16 14 16 Blood Pressure Blood Pressure [Ri ght Arm] 103/50 L 91/46 L 99/52 L Pulse Oximetry 95 95 95 Oxygen Delivery Me thod Nasal Cannula Nasal Cannula Nasal Cannula Oxygen Flow Rate 1 1 1 07/04/22 18:00 07/04/22 18:10 07/04/22 19:00 Temperature 97.1 F L 97.1 F L 97.6 F Pulse Rate Pulse Rate [Left P ulse Oximeter] 63 68 66 Respiratory Rate 16 16 16 Blood Pressure Blood Pressure [Ri ght Arm] 86/47 L 94/48 L 102/61 Pulse Oximetry 96 95 98 Oxygen Delivery Me thod Nasal Cannula Nasal Cannula Nasal Cannula Oxygen Flow Rate 2 1 1 07/04/22 20:00 07/04/22 21:00 07/04/22 22:00 Temperature 97.6 F 98 F Pulse Rate Pulse Rate [Left P ulse Oximeter] 69 73 Respiratory Rate 18 20 Blood Pressure Blood Pressure [Ri ght Arm] 109/60 120/53 L Pulse Oximetry 93 93 Oxygen Delivery Me thod Room Air Room Air Nasal Cannula Oxygen Flow Rate 1 07/04/22 22:00 07/04/22 23:00 07/04/22 23:00 Temperature 98 F 98 F 98 F Pulse Rate Pulse Rate [Left P ulse Oximeter] 68 67 67 Respiratory Rate 20 16 16 Blood Pressure Blood Pressure [Ri ght Arm] 110/62 92/54 L 93/51 L Pulse Oximetry 93 95 95 Oxygen Delivery Me thod Nasal Cannula Nasal Cannula Nasal Cannula Oxygen Flow Rate 1 1 1 07/05/22 03:00 07/05/22 07:00 07/05/22 11:00 Temperature 98 F 98.3 F 98.1 F Pulse Rate Pulse Rate [Left P ulse Oximeter] 64 95 83 Respiratory Rate 16 16 18 Blood Pressure Blood Pressure [Ri ght Arm] 114/55 L 109/60 109/60 Pulse Oximetry 95 95 98 Oxygen Delivery Me thod Nasal Cannula Nasal Cannula Room Air Oxygen Flow Rate 0 0 DS: Data Data Completed and Pending Labs on day of discharge: Labs from last 24 hours 09/07/05/22 07/05/22 12:45 06:18 06:18 WBC 14.55 H RBC 3.79 L Hgb 11.0 L 10.9 L Hct 33.3 MCV 88 MCH 29 MCHC 33 RDW Coeff of Omaira 13.2 Plt Count 328 Neut % (Auto) 85.9 H Lymph % (Auto) 6.3 L [place] % (Auto) 7.6 Eos % (Auto) 0.0 Baso % (Auto) 0.1 Neut # (Auto) 12.50 H Lymph # (Auto) 0.90 [place] # (Auto) 1.10 H Eos # (Auto) 0.00 Baso # (Auto) 0.00 Abs Immat Gran (auto) 0.02 Sodium 134 L Potassium 4.0 BUN 14 Creatinine 0.6 Estimated Creat Clear 70.90 Estimated GFR 95 Discharge Plan Discharge Disposition: Home, Self-Care Discharging Surgeon: Toni Cano Follow-Up Appointment: 1 week PO with SILVINO Prescriptions: New sennosides-docusate sodium [Senna-S] 8.6-50 mg tablet 1 - 4 tab-cap PO BID PRN (Reason: constipation) Qty: 60 0RF Rx Instructions: Hold medication if experiencing loose stools. aspirin 81 mg tablet,delayed release (DR/EC) 81 mg PO BID Qty: 50 0RF Rx Instructions: Medication to help prevent blood clots postoperatively; take TWICE daily. oxycodone 5 mg tablet 2.5 - 5 mg PO Q4-6H MDD 6 PRN (Reason: pain) Qty: 42 0RF Rx Instructions: Take as needed for postop pain: 2.5mg mild pain, 5mg moderate-severe pain; wean as tolerated. rivaroxaban 10 mg tablet 10 mg PO DAILY Qty: 4 0RF Rx Instructions: Medication for deep vein clot prevention post surgery. Complete this medication before starting Aspirin. Continued coenzyme Q10 100 mg capsule 100 mg PO DAILY acetaminophen 650 mg tablet extended release 650 mg PO TID PRN multivitamin Tablet 1 tab PO DAILY cholecalciferol (vitamin D3) 25 mcg (1,000 unit) capsule 25 mcg PO DAILY zinc 50 mg tablet 50 mg PO DAILY atorvastatin 10 mg tablet 10 mg PO HS Held krill oil 500 mg capsule 1 cap PO DAILY Hold Instructions: Resume on 07/09/22. lisinopril 10 mg tablet 10 mg PO DAILY Hold Instructions: Resume on 07/09/22. hydrochlorothiazide 25 mg tablet 25 mg PO DAILY Qty: 90 3RF Hold Instructions: Resume on 07/09/22. Activity Level: Activity as Tolerated, Weight Bearing as Tolerated, Use Cane and Use Walker Activity Detail: Wound: ?Do not remove original dressing; we will remove this at first postop visit in 1 week. Only remove dressing if integrity is in question. ?No immersing wound in water; showering okay; light scrub with your hand and body soap, rinse, dab dry ?Sutures are under the skin, will dissolve; allow surgical glue to come off naturally; do not scrub the wound or apply ointments/lotions ?Call our office with any redness that streaks, excessive drainage from the wound, or wound gapping. Ice/Elevate: ?Ice as needed for swelling and discomfort (cryocuff or ice pack); elevate frequently above the heart JAYASHREE socks: ?Wear for 1 month, remove for 1 hour 3 times per day ?These are frustrating to take on/off, but are important for blood clot prevention for 1 month after surgery Blood Clot Prevention (DVT): ?Medication: Rivaroxaban, and transition to 81 mg aspirin by mouth twice daily (total one month of protection). Driving: ?Do not drive while taking narcotic pain medication ?Anticipate 4-6 weeks no driving if operative leg is driving leg Dental: ?No elective dental work for 6 months post-op. If there is an urgent/emergent dental need, contact our office for an antibiotic prescription. Smoking/Alcohol: ?Do not smoke; do no drink alcohol especially when taking postoperative oral narcotic medication Seek Care from you Primary Care Provider if you experience the following issues in the postoperative phase and beyond: ?Bacterial infections such as: pneumonia, bacterial skin infection (cellulitis), UTI, high fever, chills unrelated to the operative body part - call your primary care physician urgently for treatment in hopes to protect your health and the metal implant. Referrals: ?PT, OT per patient preference - evaluate treat total hip arthroplasty protocol (gait training, ROM, ADLs) Follow up: ?Ortho surgeon follow-up in 6 weeks; repeat radiographs AP pelvis, cross-table lateral operative hip ?PA-C visit in 1 week *If there are any acute concerns regarding your surgery, please call our orthopedic clinic ([phone]) Discharge Diet: Regular Patient Instructions: Aspirin (By mouth), Oxycodone, Rapid Release (By mouth), Rivaroxaban (By mouth), Senna (By mouth) (Sen, Senna-lax), Total Hip Replacement (DC) Forms: Work/Release Restrictions Follow-up: Abhay Ochoa PA-C [Physician Bus Person Dishwasher] - 07/10/22 9:00 am April Colón DO [Primary Care Provider] - (Saturday or Saturday for BP check and to determine when to restart antihypertensives.) Discharge Orders: Discharge Order (Routine); Ordered 07/05/22 Ordered By: Bartolo Diaz
[2022-07-05 14:00] VITALS: BP 99/57; PULSE 63; RESP 18; TEMP 36.7
[2022-07-05] MEDS: RIVAROXABAN 10 MG TABLET PO (14:16)
--- NOTE | 2022-07-05 16:31 | PC.NURSE ---
Pt up with SBa, gait belt, and walker. Denies nausea, SBO chest pain. Active ice to right hip. Dressing clean, dry, and intact. Oxycodone per MAR for pain control. IV DC'd, cath tip intact. DC instructions given verbally and in writing to pt and daughter, Kailey, whom will be staying with pt for post-op cares. DC'd vi w/c to return home @0232.
== END 2022-07-05 14:45 | disposition home or self-care (01) ==
LOC: OR 10:26 → MEDSURG 10:42
PROVIDERS: Family Medicine; PCP Family Medicine; Visit Provider Orthopaedic Surgery Sports Medicine
PROC: (CPT 27130; principal; 2022-07-04 12:45)
DX: M16.11 Unilateral primary osteoarthritis, right hip (principal); I10 Essential (primary) hypertension; E78.5 Hyperlipidemia, unspecified; M48.00 Spinal stenosis, site unspecified; R01.1 Cardiac murmur, unspecified; E78.1 Pure hyperglyceridemia; M81.0 Age-related osteoporosis without current pathological fracture; M54.50 Low back pain, unspecified; D62 Acute posthemorrhagic anemia
CPT/HCPCS: 27130; 01214; 36415; 64450; 73501; 76942; 82565; 84132; 84295; 84520; 85018; 85025; 97110; 97116; 97161; 97165; 97166; 97535; 99100; A9270; C1776; J0330; J0690; J1100; J1170; J2250; J2405; J2704; J2710; J2795; J3010; J7120

== ENCOUNTER 2023-07-18 12:57 | Outpatient (CLI) | payer OTHER, SELFPAY | END 2023-07-18 12:58 | disposition home or self-care (01) | PROVIDERS: PCP Family Medicine; Visit Provider Family Medicine | DX: E78.5 Hyperlipidemia, unspecified (principal); I10 Essential (primary) hypertension; R73.03 Prediabetes; M54.50 Low back pain, unspecified; M81.0 Age-related osteoporosis without current pathological fracture; E66.01 Morbid (severe) obesity due to excess calories | CPT/HCPCS: 80053; 82043; 82306; 82570; 82607 ==

== ENCOUNTER 2023-09-17 13:48 | Outpatient (CLI) | payer OTHER, SELFPAY ==
--- NOTE | 2023-09-17 13:45 | CRLHL7_ITS ---
For Patients: As a result of the Century Cures Act, medical imaging exams and procedure reports are released immediately into your electronic medical record. You may view this report before your referring provider. If you have questions, please contact your health care provider. INDICATION: Spinal stenosis. TECHNIQUE : Lumbar spine MRI without contrast. The following sequences were obtained: Sagittal T1, T2 weighted and STIR sequences. Axial T1 and T2 weighted sequences. COMPARISON: Lumbar spine radiographs from 09/10/2023. FINDINGS : Five lumbar type vertebral bodies, with the last fully formed disc space designated as L5-S1. Accentuated lumbar lordosis. No recent compression fracture or marrow replacing process. Lower cord/conus signal is normal. The conus terminates at a normal location. No intradural lesion. No extraspinal soft tissue abnormalities. Discs/Endplates: At L5-S1, moderate disc height loss and disc desiccation. Mild disc height loss/disc desiccation elsewhere. Findings at individual levels as follows: T10-11: No spinal canal or neural foraminal stenosis. T11-12: Trace retrolisthesis. Shallow central protrusion flattens the thecal sac with mild spinal canal stenosis. No neural foraminal stenosis. T12-L1: Mild disc bulge with posterior central annular fissure. No spinal canal or neural foraminal stenosis. L1-2: Trace retrolisthesis. Mild disc bulge. Bilateral low-grade facet arthrosis. Mild bilateral foraminal stenosis. No spinal canal stenosis. L2-3: Trace retrolisthesis. Mild disc bulge. Bilateral low-grade facet arthrosis. No spinal canal or neural foraminal stenosis. L3-4: Mild disc bulge. Bilateral facet arthrosis. Mild bilateral neural foraminal stenosis. No spinal canal stenosis. L4-5: Moderate disc bulge, asymmetric to the right. Bilateral high-grade facet arthrosis and facet joint effusions. Dorsal epidural lipomatosis. Moderate thecal sac effacement. Moderately advanced right neural foraminal stenosis with impingement of the exiting right L4 nerve root. No left neural foraminal stenosis. Stir hyperintensity within the right-sided pedicles, compatible with stress reaction/edema. L5-S1: 10 millimeters grade 2 anterolisthesis. Bilateral high-grade facet arthrosis. Question of pars defect on the right. Moderately advanced left and advanced right neural foraminal stenosis with impingement of the exiting L5 nerve roots. Moderate spinal canal stenosis. Imaged SI joints: Bilateral arthrosis. Imaged sacrum: Within normal limits. IMPRESSION: 1. At L4-5, moderate thecal sac effacement from spondylosis and dorsal epidural lipomatosis. Moderately advanced right neural foraminal stenosis, predominantly from high-grade facet arthrosis, with impingement of the exiting right L4 nerve root. Stress reaction/edema right-sided pedicles. 2. At L5-S1, grade 2 anterior listhesis. Bilateral high-grade facet arthrosis with question of pars defect on the right. Moderate spinal canal stenosis. Moderately advanced left and advanced right neural foraminal stenosis with impingement of the exiting L5 nerve roots. 3. Lower grade spinal canal/neural foraminal narrowing at additional levels without impingement of neural structures. Dictated by Krishan Prescott MD @ 09/18/2023 1:17:51 PM (Electronically Signed)
== END 2023-09-17 13:49 | disposition home or self-care (01) ==
LOC: MRI 13:48
PROVIDERS: PCP Family Medicine; Visit Provider Family Medicine
DX: M43.17 Spondylolisthesis, lumbosacral region (principal); M48.061 Spinal stenosis, lumbar region without neurogenic claudication; M43.16 Spondylolisthesis, lumbar region
CPT/HCPCS: 72148

== ENCOUNTER 2023-10-09 12:52 | Outpatient (CLI) | payer OTHER, SELFPAY ==
--- NOTE | 2023-10-09 13:00 | CRLHL7_ITS ---
For Patients: As a result of the Century Cures Act, medical imaging exams and procedure reports are released immediately into your electronic medical record. You may view this report before your referring provider. If you have questions, please contact your health care provider. DXA BONE MINERAL DENSITY STUDY Current height (in): 59.0. Weight (lb): 194.0. Menopause age: 17. Ethnicity: White. 1. Have you had a previous hip or vertebral fracture? No. 2. Have you had any fractures during your adult life which did not result from significant trauma (e.g., auto accident)? No. 3. Did either of your parents have a hip fracture? Yes. 4. Do you smoke? No. 5. Have you ever taken Glucocorticoids? No. 6. Do you have rheumatoid arthritis? No. 7. Do you have secondary osteoporosis? Yes. 8. Do you drink 3 or more alcoholic drinks per day? No. 9. Are you being treated for osteoporosis? No. 10. Have you ever taken any of the following medications: Actonel, Evista, Fosamax, Miacalcin, Reclast, Boniva, Forteo, HRT (i.e. estrogen/hormone therapy), Protelos, Prolia, Vitamin D, Calcium, other ??? please specify. ANSWER: Yes, Vitamin D, Calcium. 11. Do you have any of the following medical conditions: Anorexia or bulimia, asthma or emphysema, end stage renal disease, hyperparathyroidism, any seizure disorders, cancer, inflammatory bowel diseases, hysterectomy, other ??? please specify. ANSWER: Yes, hysterectomy. 12. What was your maximum height (inches)? 62. 13. Do you perform weight bearing exercise regularly? No. 14. Do you regularly consume dairy products? Yes. 15. Do you drink caffeinated beverages? No. If female: 16. At what age did your period start? 12. 17. Are you premenopausal? No. 18. How many full term pregnancies have you had? 0. 19. Have you ever missed your period for more than 6 months in a row (not including or menopause)? No. TECHNIQUE: Bone mineral density study was performed using the [employer]. FINDINGS: The results of the study expressed as bone mineral density (BMD) are as follows: Lumbar spine L1 , L2 L4: BMD: 0.863 g/cm2. T-score: -1.6. Z-score: 0.7. Radius Right 33%: BMD: 0.438 g/cm2. T-score: -4.3 . Z-score: -1.9. Left 33%: BMD: 0.496 g/cm2. T-score: -3.3 . Z-score: -0.9. IMPRESSION: Osteoporosis. *Comparison exams done prior to 03/2020 were performed on different unit, [employer]. Marco Antonio Robertson M.D. Diagnostic Radiologist [email or web address] DSM/alla JR/Dictated by: Marco Antonio Robertson MD @ 10/10/2023 8:56:00 AM (Electronically Signed)
== END 2023-10-09 12:53 | disposition home or self-care (01) ==
LOC: RAD 12:52
PROVIDERS: PCP Family Medicine; Visit Provider Family Medicine
DX: M81.0 Age-related osteoporosis without current pathological fracture (principal)
CPT/HCPCS: 77080

== ENCOUNTER 2023-10-15 09:16 | Outpatient (CLI) | payer OTHER, SELFPAY | END 2023-10-15 09:17 | disposition home or self-care (01) | LOC: INJ CL 09:17 | PROVIDERS: PCP Family Medicine; Visit Provider Family Medicine | DX: M51.36 Other intervertebral disc degeneration, lumbar region (principal); M54.16 Radiculopathy, lumbar region | CPT/HCPCS: 64483; J1100; Q9966 ==

== ENCOUNTER 2024-07-10 13:48 | Outpatient (CLI) | payer OTHER, SELFPAY | END 2024-07-10 13:49 | disposition home or self-care (01) | LOC: FRMREF 14:18 | PROVIDERS: Visit Provider Family Medicine | DX: E11.69 Type 2 diabetes mellitus with other specified complication (principal); E66.9 Obesity, unspecified; I10 Essential (primary) hypertension; R01.1 Cardiac murmur, unspecified; I72.6 Aneurysm of vertebral artery | CPT/HCPCS: 82043; 82570 ==

== ENCOUNTER 2024-07-23 10:29 | Outpatient (CLI) | payer OTHER, SELFPAY | END 2024-07-23 10:30 | disposition home or self-care (01) | LOC: RAD 10:30 | PROVIDERS: PCP Family Medicine; Visit Provider Family Medicine | DX: R01.1 Cardiac murmur, unspecified (principal); I35.1 Nonrheumatic aortic (valve) insufficiency | CPT/HCPCS: 93306 ==

== ENCOUNTER 2024-09-17 14:45 | Outpatient (CLI) | payer OTHER, SELFPAY | END 2024-09-17 14:46 | disposition home or self-care (01) | PROVIDERS: PCP Family Medicine; Visit Provider Family Medicine | DX: E78.5 Hyperlipidemia, unspecified (principal); I10 Essential (primary) hypertension; E11.69 Type 2 diabetes mellitus with other specified complication; E66.9 Obesity, unspecified; M81.0 Age-related osteoporosis without current pathological fracture; Z11.59 Encounter for screening for other viral diseases | CPT/HCPCS: 80053; 80061; 82043; 82306; 82570; 86803 ==

== ENCOUNTER 2024-10-19 08:58 | Outpatient (CLI) | payer MEDICARE, SELFPAY ==
--- NOTE | 2024-10-19 09:15 | CRLHL7_ITS ---
For Patients: As a result of the Century Cures Act, medical imaging exams and procedure reports are released immediately into your electronic medical record. You may view this report before your referring provider. If you have questions, please contact your health care provider. Indication: Aneurysm of vertebral artery Technique: 3D [id number] MR angiogram of the [id number] with 3-dimensional MIP projections were submitted. Axial diffusion and ADC sequences were also obtained through the brain. Comparison: CTA head 07/24/2024 Findings: Redemonstration of right vertebral artery dolichoectasia and diminutive, congenitally non dominant left vertebral artery. Visualized bilateral vertebral arteries, basilar artery, and internal carotid arteries appear grossly patent. The bilateral anterior, middle, and posterior cerebral arteries and proximal branches appear grossly patent. 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 No other significant aneurysm or high-flow vascular malformation is seen. No abnormal restricted diffusion. Impression: 1. 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 2. Redemonstration of right vertebral artery dolichoectasia. 3. No evidence of acute/subacute ischemia. Dictated by Jojo Torre MD @ 10/19/2024 3:38:03 PM (Electronically Signed)
--- NOTE | 2024-10-19 10:15 | CRLHL7_ITS ---
For Patients: As a result of the Century Cures Act, medical imaging exams and procedure reports are released immediately into your electronic medical record. You may view this report before your referring provider. If you have questions, please contact your health care provider. Indication Cerebral aneurysm. Technique [id number] and postcontrast MRA images of the neck. COMPARISON: None. FINDINGS: The innominate and subclavian arteries are widely patent. The proximal common carotid arteries are suboptimally assessed secondary to artifact. The common carotid arteries are otherwise widely patent. The internal carotid arteries are widely patent. The left vertebral artery is hypoplastic and the right vertebral artery is dominant. The right vertebral artery origin is suboptimally assessed. The vertebral arteries are otherwise widely patent. IMPRESSION: Artifact limits evaluation of the proximal common carotid arteries as well as the right vertebral artery origin. The cervical vasculature is otherwise widely patent. Dictated by Durga Rahman MD @ 10/19/2024 1:49:51 PM (Electronically Signed)
== END 2024-10-19 08:59 | disposition home or self-care (01) ==
LOC: MRI 09:00
PROVIDERS: PCP Family Medicine; Visit Provider Family Medicine
DX: I72.6 Aneurysm of vertebral artery (principal); I67.1 Cerebral aneurysm, nonruptured
CPT/HCPCS: 70544; 70549; A9575

== ENCOUNTER 2024-10-27 08:22 | Outpatient (CLI) | payer MEDICARE, SELFPAY ==
--- NOTE | 2024-10-27 08:15 | CRLHL7_ITS ---
For Patients: As a result of the Century Cures Act, medical imaging exams and procedure reports are released immediately into your electronic medical record. You may view this report before your referring provider. If you have questions, please contact your health care provider. Examination: US abdominal aorta Indication: Hx of nicotine dependence. Abdominal aortic aneurysm screening. Technique: Terrazas scale and color Doppler images of the aorta and common iliac arteries are obtained. Comparison: None Findings: Proximal aorta: 2.1 x 2.1 cm Mid aorta: 1.9 x 2.1 cm Distal aorta: 2.0 x 1.9 cm Right common iliac artery: 1.2 x 1.2 cm Left common iliac artery: 1.3 x 1.2 cm Impression: No abdominal aortic aneurysm. Dictated by Marco Antonio Robertson MD @ 10/27/2024 10:42:28 AM (Electronically Signed)
== END 2024-10-27 08:23 | disposition home or self-care (01) ==
LOC: US 08:23
PROVIDERS: PCP Family Medicine; Visit Provider Family Medicine
DX: Z13.6 Encounter for screening for cardiovascular disorders (principal); Z87.891 Personal history of nicotine dependence; M81.0 Age-related osteoporosis without current pathological fracture; I10 Essential (primary) hypertension
CPT/HCPCS: 76706

== ENCOUNTER 2024-12-28 09:45 | Outpatient (CLI) | payer MEDICARE, SELFPAY | END 2024-12-28 09:46 | disposition home or self-care (01) | LOC: FRMREF 09:46 | PROVIDERS: PCP Family Medicine; Visit Provider Family Medicine | DX: Z01.818 Encounter for other preprocedural examination (principal); E11.69 Type 2 diabetes mellitus with other specified complication; I10 Essential (primary) hypertension; E66.9 Obesity, unspecified; N39.0 Urinary tract infection, site not specified | CPT/HCPCS: 80048; 87086 ==

== ENCOUNTER 2025-07-13 08:10 | Outpatient (CLI) | payer MEDICARE, SELFPAY | END 2025-07-13 08:11 | disposition home or self-care (01) | LOC: FRMREF 08:10 | PROVIDERS: PCP Family Medicine; Visit Provider Family Medicine | DX: E11.69 Type 2 diabetes mellitus with other specified complication (principal); E78.5 Hyperlipidemia, unspecified; I10 Essential (primary) hypertension; E66.9 Obesity, unspecified; Z68.41 Body mass index [BMI] 40.0-44.9, adult | CPT/HCPCS: 80053 ==